=== PATIENT | male | born 1945 | race Caucasian/White ===

== ENCOUNTER → 2021-02-12 | Outpatient (CLI) | payer MEDICARE ==
[2014-01-04 15:00] VITALS: BP 130/80
[~2021-02-12] MED LIST: AMLO1TAB12 PO; ASPI-630 PO; ATOR40TA59 PO; EZET10TA20 PO; IOHEXOL 300 MG/ML 100ML VIAL. IV ONE; MULT-18 PO; OMEG1CAP6 PO; OMEP40CA7 PO; [UNRECOGNIZED DRUG - OTHER]
[2021-02-12 10:32] LABS: CREATININE 1.1 mg/dL (0.7-1.3); GFR 65.4
--- NOTE | 2021-02-13 09:15 | RAD ---
CLINICAL HISTORY: Reason: Monocular vision loss, h/o right sided carotid endarterectomy / Spl. Instru ctions: IV omni 300 75 mls / History: COMPARISON: None available. TECHNIQUE: CT angiogram of the head and neck was performed following the administration of IV contras t. Multiplanar reconstructed images were obtained including 3D reconstructed images performed on an [employer] work station. Stenosis if present in the carotid arteries were measured using [employer] crite cipriano. PQRS compliance statement - One or more of the following individualized dose reduction techniques wer e utilized for this study: 1. Automated exposure control 2. Adjustment of the mA and/or kV according to patient size 3. Use of iterative reconstruction technique FINDINGS: Atheromatous plaque and calcifications causing and mild narrowing at the origin of the left subclavia n artery. Otherwise the origin of the great vessels of the aortic arch are widely patent. Atheromatou s plaque and calcifications are seen at the aortic arch. At the midportion the aortic arch there is a region of contrast extension into the atheromatous plaque, may represent ulcerated atherosclerotic p laque of the penetrating atherosclerotic ulcer could have this appearance. In the neck, the common carotid arteries are grossly normal in caliber without high-grade stenosis. The right internal carotid artery is mildly enlarged at the origin with eccentric soft plaque causing up to 50 percent narrowing. Atheromatous plaque and calcifications of the left internal carotid bryant ry without high-grade stenosis. In the neck, the left vertebral artery is grossly normal in caliber. There is approximately 50 percen t narrowing of the right vertebral artery just caudal the foramen magnum. The left vertebral artery terminates in a cerebellar artery. The right vertebral artery is dominant. Basilar artery is grossly normal in caliber. The intracranial portions of the internal carotid arteri es are widely patent with atheromatous plaque and calcifications. origin of the [employer] bilaterally . The anterior, middle and posterior cerebral arteries are grossly patent lumen the proximal visualiz ed portions. Distal evaluation is limited based on phase of contrast. Specifically distal evaluation of the [employer]EL[employer] is limited. Biapical emphysematous changes are seen. IMPRESSION: 1. Atherosclerotic disease of the carotid, vertebral and cerebral arteries as above. Specifically th ere is fusiform enlargement of the proximal right ICA with eccentric soft plaque resulting in about 5 0 percent narrowing. This may be related to prior carotid endarterectomy. 2. Outpouching of contrast from the aortic arch may represent ulcerated atheromatous plaque although penetrating atherosclerotic ulcer could also have this appearance. This can be correlated with patie nt's pain/symptoms and consider interval follow-up imaging or surgical evaluation. Electronically signed by: Yvon Singh MD (02/13/2021 9:13 AM) [id number]
== END ==
LOC: CT 10:52
PROVIDERS: ATTEND Psychiatry & Neurology Neurology with Special Qualifications in Child Neurology
DX: I65.23 Occlusion and stenosis of bilateral carotid arteries (principal); H54.60 Unqualified visual loss, one eye, unspecified; I70.8 Atherosclerosis of other arteries; I65.01 Occlusion and stenosis of right vertebral artery; J43.9 Emphysema, unspecified; Z98.890 Other specified postprocedural states
CPT/HCPCS: 36415; 70496; 70498; 82565; 84520; Q9967